=== PATIENT | male | born 2000 | race Caucasian/White ===

== ENCOUNTER 2022-11-29 07:32 | Emergency (ER) | payer OTHER ==
[~2022-11-29] VITALS: Ht 170.2 cm; Wt 93.3 kg
[2022-11-29] MEDS ORDERED: KETOROLAC 60MG 2ML VIAL IM ONE (08:20)
[2022-11-29] MEDS ORDERED: MEDR4PAK PO (08:27)
[2022-11-29] MEDS ORDERED: NAPR-837 PO (08:28)
[2022-11-29] MEDS ORDERED: CYCL5TAB PO (08:28)
[2022-11-29 09:17] VITALS: BP 142/59
== END 2022-11-29 09:23 | disposition home or self-care (01) ==
LOC: M ED 07:32
DX: M54.50 Low back pain, unspecified (principal)
CPT/HCPCS: 72110; 96372; 99283; J1885